=== PATIENT | female | born 1990 | race Caucasian/White ===

== ENCOUNTER 2024-07-04 18:55 | Outpatient (REF) | payer OTHER, SELFPAY ==
[2024-07-10 14:09] LABS: Age Gdln ACOG Testing Note (.); HPV Aptima Negative (Negative); IGP, Aptima HPV, rfx 16/18,45 Note (.)
== END 2024-07-04 18:56 | disposition home or self-care (01) ==
LOC: LAB 18:55
PROVIDERS: Visit Provider Obstetrics & Gynecology
DX: Z01.419 Encounter for gynecological examination (general) (routine) without abnormal findings (principal)
CPT/HCPCS: 87624; 88175

== ENCOUNTER 2025-07-09 19:45 | Outpatient (REF) | payer OTHER, SELFPAY ==
--- OUTSIDE RECORDS SUMMARY | 2025-07-09 19:48 | XMS_ITS | CCD ---
Author Organization [facility] CliniSyma Care Team Providers Care Shuttle Operator Name Role Phone RAEANN, DR BRIZUELA Admitting Unavailable REQUEST, NONE LISTED Primary Care Unavaila ble RAEANN, DR BRIZUELA Attending Unavailable RAEANN, DR BRIZUELA Consulting Unavailable REQUEST, DR TAMAYO LISTED Primary Care Unavaila ble RAEANN, DR BRIZUELA Consulting Unavailable RAEANN, DR BRIZUELA Admitting Unavailable RAEANN, DR BRIZUELA Attending Unavailable ZIEBER, DR TERI Cifuentes Consulting Unavailable RAEANN, DR BRIZUELA Admitting Unavailable RAEANN, DR BRIZUELA Attending Unavailable RAEANN, DR BRIZUELA Consulting Unavailable RAEANN, DR BRIZUELA Primary Care Unavailable RAEANN, DR BRIZUELA Admitting Unavailable REQUEST, DR BELKIS LISTED Primary Care Unavaila ble RAEANN, DR BRIZUELA Attending Unavailable RAEANN, DR BRIZUELA Consulting Unavailable RAEANN, DR BRIZUELA Attending Unavailable RAEANN, DR BRIZUELA Admitting Unavailable REQUEST, DR TAMAYO LISTED Primary Care Unavaila ble RAEANN, DR BRIZUELA Consulting Unavailable RAEANN, DR BRIZUELA Attending Unavailable RAEANN, DR BRIZUELA Admitting Unavailable REQUEST, DR BELKIS LISTED Primary Care Unavaila ble RAEANN, DR BRIZUELA Consulting Unavailable WEST, DR SUKI Kilpatrick Consulting Unavailable REQUEST, DR TAMAYO LISTED Primary Care Unavaila ble RAEANN, DR BRIZUELA Attending Unavailable RAEANN, DR BRIZUELA Admitting Unavailable RAEANN, DR BRIZUELA Consulting Unavailable REQUEST, DR TAMAYO LISTED Primary Care Unavaila ble RAEANN, DR BRIZUELA Consulting Unavailable RAEANN, DR BRIZUELA Admitting Unavailable RAEANN, DR BRIZUELA Attending Unavailable WEST, DR SUKI Kilpatrick Consulting Unavailable REQUEST, DR TAMAYO LISTED Primary Care Unavaila ble RAEANN, DR BRIZUELA Admitting Unavailable RAEANN, DR BRIZUELA Attending Unavailable RAEANN, DR BRIZUELA Consulting Unavailable RAEANN, DR BRIZUELA Consulting Unavailable RAEANN, DR BRIZUELA Admitting Unavailable RAEANN, DR MAY Attending Unavailable JOSH WELLS Admitting Unavailable JOSH WELLS Attending Unavailable JOSH WELLS Consulting Unavailable DR GELACIO CARY Primary Care Unavailable JOSH WELLS Procedure Practitioner Unavailab le Unavailable Primary Care Provider UnavailGELACIO Medrano Attending Unavailable GELACIO CARY Attending Unavailable Medications Current Medications Medication Drug Class(es) Dates Sig (Normalized) Sig (Original) etonogestrel 68 mg drug implant (4 sources) Progestin Start: 04-11-2024 End: 04-11-2027 etonogestrel-eluting 68 mg contraceptive implant 1 each Problems Active Problems Problem Classification Problem Date Documented Date Episodic/Chronic Immunizations and screening for infectious disease (2 sources) Encounter for screening for human papillomavirus (HPV); Translations: [Encounter for screening for infections with a predominantly sexual mode of transmission] Onset: 08-25-2020 Episodic Other complications of ; puerperium affecting management of mother (1 source) Obesity complicating childbirth; Translations: [OBESITY COMPLICATING CHILDBIRTH] Onset: 02-03-2021 Chronic Other nutritional; endocrine; and metabolic disorders (1 source) Obesity, unspecified; Translations: [OBESITY UNSPECIFIED] Onset: 02-03-2021 Chronic Other screening for suspected conditions (not mental disorders or infectious disease) (17 sources) Encounter for screening for malignant neoplasm of cervix; Translations: [Encounter for screening for Streptococcus B] Onset: 09-06-2020 Episodic Unclassified (1 source) CONTACT W/AND (SUSP) EXPOS COVID-19; Translations: [CONTACT W/AND (SUSP) EXPOS COVID-19] Onset: 02-03-2021 Past or Other Problems Problem Classification Problem Date Documented Date Episodic/Chronic Diabetes mellitus without complication (4 sources) Other abnormal glucose; Translations: [OTHER ABNORMAL GLUCOSE] Onset: 10-22-2020 Episodic Hemorrhage during ; abruptio placenta; placenta previa (4 sources) Low lying placenta NOS or without hemorrhage, unspecified trimester; Translations: [LOW LYING PL NOS W/O HEMORR UNS TRI] Onset: 10-16-2020 Episodic OB-related trauma to perineum and vulva (1 source) First degree perineal laceration during delivery; Translations: [FIRST DEG PERINEAL LAC DUR DELIV] Onset: 02-03-2021 Episodic Other complications of (5 sources) Other specified related conditions, third trimester; Translations: [OTH SPEC PREG RELATED COND 3RD TRI] Onset: 11-20-2020 Episodic Other female genital disorders (1 source) Other specified noninflammatory disorders of vagina; Translations: [OTH SPEC NONINFLAMMATORY D/O VAGINA] Onset: 08-25-2020 Episodic Other infections; including parasitic (4 sources) Trichomoniasis, unspecified; Translations: [TRICHOMONIASIS UNSPECIFIED] Onset: 09-18-2020 Episodic Other and delivery including normal (6 sources) Single live ; Translations: [Encounter for supervision of normal first , unspecified trimester] Onset: 08-28-2020 Episodic Polyhydramnios and other problems of amniotic cavity (1 source) Full-term premature rupture of membranes, onset of labor within 24 hours of rupture; Translations: [FT PROM ONSET LABR W/I 24 HR RUPT] Onset: 02-03-2021 Episodic Residual codes; unclassified (1 source) 39 weeks gestation of ; Translations: [39 WEEKS GESTATION OF ] Onset: 02-03-2021 Episodic Residual codes; unclassified (1 source) Type A blood, Rh negative; Translations: [TYPE A BLOOD RH NEGATIVE] Onset: 02-03-2021 Episodic Residual codes; unclassified (1 source) Personal history of other specified conditions; Translations: [PERSONAL HISTORY OTH SPEC CONDITION] Onset: 02-03-2021 Episodic Residual codes; unclassified (1 source) Unspecified blood type, Rh negative; Translations: [UNSPECIFIED BLOOD TYPE RH NEGATIVE] Onset: 11-20-2020 Episodic Residual codes; unclassified (1 source) Other specified postprocedural states; Translations: [OTH SPECIFIED POSTPROCEDURAL STATES] Onset: 09-06-2020 Episodic Screening and history of mental health and substance abuse codes (1 source) Personal history of nicotine dependence; Translations: [PERSONAL HISTORY OF NICOTINE DEPEND] Onset: 02-03-2021 Episodic Substance-related disorders (2 sources) Drug use complicating childbirth; Translations: [Cannabis use, unspecified, uncomplicated] Onset: 02-03-2021 Episodic Results Test Name Value Interpretation Reference Range Facility IGP,APTIMA HPV,AGE GDLNon AGE GDLN ACOG TESTING Note . [facility] Comment on above: TESTS RESULT FLAG UN ITS REF RANGE LAB Clinician Provided Cytology Information Source.............Cervix;Endocervix No. of containers..01 ThinPrep Vial Age Karimeo ACOG Simi... FLAG LEGEND: L-Low Normal,H-High Normal,LL-Alert Low,HH-Alert High <-Panic Low,>-Panic High,A-Abnormal,AA-Critical Abnormal Performed at: 01 =G [address] [id number] Annie Burris MD, HPV APTIMA Negative Negative [facility] Comment on above: This nucleic acid am plification test detects fourteen high- risk HPV types (16,18,31,33,35,39,45,51,52,56,58,59,66,68) without differentiation. Performed at: = - [address] [id number] Customer Service Security Officer: Annie Burris MD, Phone: [phone] Performed at: - [address] [id number] Customer Service Security Officer: Annie Burris MD, Phone: [phone] IGP, APTIMA HPV, RFX 16/18,45 Note . [facility] Comment on above: TESTS RESULT FLAG ITS REF RANGE LAB DIAGNOSIS: 02 NEGATIVE FOR INTRAEPITHELIAL LESION OR MALIGNANCY. Specimen adequacy: 02 Satisfactory for evaluation. Endocervical and/or squamous metaplastic cells (endocervical component) are present. Performed by: 02 Hernan Blakely, Airport Manager ([facility]) . 02 Note: Note 02 The Pap smear is a screening test designed to aid in the detection of premalignant and malignant conditions of the uterine cervix. It is not a diagnostic procedure and should not be used as the sole means of detecting cervical cancer. Both false-positive and false-negative reports do occur. Test Methodology: Note 02 This liquid based ThinPrep(R) pap test was screened with the use of an image guided system. HPV Genotype Reflex Note 02 Criteria not met, HPV Genotype not performed. FLAG LEGEND: L-Low Normal,H-High Normal,LL-Alert Low,HH-Alert High <-Panic Low,>-Panic High,A-Abnormal,AA-Critical Abnormal Performed at: [address] [phone] Annie Burris MD, BRUSH-SPATULA CERVIX ENDOCERVIX [facility] PAP ACOG PANEL 2: 21 to 29on 08-20-2021 . . Normal [facility] Comment on above: Performed By: #### [id number] #### [facility] [address] [place] [address] Dr. Cammy Downing Age Gdln ACOG Testing - Normal [facility] Comment on above: Performed By: #### [id number] #### [facility] [address] [place] [address] Dr. Cammy Downing DIAGNOSIS: Comment Normal [facility] Comment on above: Result Comment: NEGA TIVE FOR INTRAEPITHELIAL LESION OR MALIGNANCY. CELLULAR CHANGES ASSOCIATED WITH INFLAMMATION ARE PRESENT. Performed By: #### 4 [id number] #### [facility] [address] [place] [address] Dr. Cammy Downing Methodology: Comment Normal [facility] Comment on above: Result Comment: This liquid based ThinPrep(R) pap test was screened with the use of an image guided system. Performed By: #### [id number] #### [facility] [address] [place] [address] Dr. Cammy Downing Note: Comment Normal [facility] Comment on above: Result Comment: The Pap smear is a screening test designed to aid in the detection of premalignant and malignant conditions of the uterine cervix. It is not a diagnostic procedure and should not be used as the sole means of detecting cervical cancer. Both false-positive and false-negative reports do occur. . Performed By: #### 4 [id number] #### [facility] [address] [place] [address] Dr. Cammy Downing Performed by: Comment Normal [facility] Comment on above: Result Comment: Monica Cantu Airport Manager ([employer]) Performed By: #### 4 [id number] #### [facility] [address] [place] [address] Dr. Cammy Downing Reflex Criteria: Comment Normal [facility] Comment on above: Result Comment: The HPV DNA reflex criteria were not met with this specimen result therefore, no HPV testing was performed. . Performed By: #### 4 [id number] #### [facility] [address] [place] [address] Dr. Cammy Downing Specimen adequacy: Comment Normal [facility] Comment on above: Result Comment: Sati sfactory for evaluation. Endocervical and/or squamous metaplastic cells (endocervical component) are present. Performed By: #### 4 [id number] #### [facility] [address] [place] [address] Dr. Cammy Downing CANNABINOID (THC) CONFIRMATI ON, URINEon 02-02-2021 Cannabinoid Positive Abnormal [facility] Comment on above: Performed By: #### G LU1HR #### [facility] [address] [place], [place] [id number] Izzy Marla Carboxy THC GC/MS Conf 46 ng/mL Normal Cutoff=10 [facility] Comment on above: Performed By: #### G LU1HR #### [facility] [address] [place], [place] [id number] Izzy Marla CBC AUTO DIFFon 01-26-2021 BASO # 0.0 103/ul Normal 0.0-0.1 [facility] Comment on above: Performed By: #### C BC #### [facility] [address] [place] [address] Izzy Marla Basophils/100 WBC (Bld) 0.2 % Normal 0.2-2.0 [facility] Comment on above: Performed By: #### C BC #### [facility] [address] [place], [place] [address] Izzy Marla EO # 0.1 103/ul Normal 0.0-0.7 [facility] Comment on above: Performed By: #### C BC #### [facility] [address] [place], [place] [address] Izzy Marla Eosinophils/100 WBC (Bld) 1.1 % Normal 0.9-7.0 [facility] Comment on above: Performed By: #### C BC #### [facility] [address] [place], [place] [address] Izzy Marla Erythrocyte distribution width (RBC) [Ratio] 12.3 % Normal 11.0-15.0 [facility] Comment on above: Performed By: #### C BC #### [facility] [address] [place], [place] [address] Izzy Marla Hematocrit (Bld) [Volume fraction] 35.0 % Critically low 36.0-48.0 [facility] Comment on above: Performed By: #### C BC #### [facility] [address] [place] [address] Izzy Marla Hemoglobin (Bld) [Mass/Vol] 11.6 g/dL Critically low 12.0-16.0 [facility] Comment on above: Performed By: #### C BC #### [facility] [address] [place], [place] [address] Izzy Marla IG # 0.04 10e3/ul Critically high 0.00-0.03 [facility] Comment on above: Performed By: #### C BC #### [facility] [address] [place], [place] [address] Izzy Marla IG % 0.4 % Normal 0.0-0.5 [facility] Comment on above: Performed By: #### C BC #### [facility] [address] [place] [address] Izzy Marla LYMPH # 2.6 103/ul Normal 1.2-3.8 [facility] Comment on above: Performed By: #### C BC #### [facility] [address] [place] [address] Izzy Marla Lymphocytes/100 WBC (Bld) 23.8 % Normal 20.5-60.0 [facility] Comment on above: Performed By: #### C BC #### [facility] [address] [place], [place] [address] Izzyjuana Gutiérrez MANUAL DIFF REQ NO Normal [facility] Comment on above: Performed By: #### C BC #### [facility] [address] [place], [place] [address] Izzy Marla MCH (RBC) [Entitic mass] 30.9 pg Normal 26.7-34.0 [facility] Comment on above: Performed By: #### C BC #### [facility] [address] [place], [place] [address] Izzy Marla MCHC (RBC) [Mass/Vol] 33.1 g/dL Normal 29.9-35.2 [facility] Comment on above: Performed By: #### C BC #### [facility] [address] [place], [place] [address] Izzy Marla MCV (RBC) [Entitic vol] 93.1 fL Normal 81.0-99.0 [facility] Comment on above: Performed By: #### C BC #### [facility] [address] [place], [place] [address] Izzy Gutiérrez MONO # 1.1 103/ul Critically high 0.3-0.8 [facility] Comment on above: Performed By: #### C BC #### [facility] [address] [place], [place] [address] Izzy Gutiérrez Monocytes/100 WBC (Bld) 9.9 % Normal 1.7-12.0 [facility] Comment on above: Performed By: #### C BC #### [facility] [address] [place] [address] Izzy Gutiérrez NEUT # 7.0 103/ul Critically high 1.4-6.5 [facility] Comment on above: Performed By: #### C BC #### [facility] [address] [place] [address] Izzy Gutiérrez Neutrophils/100 WBC (Bld) 64.6 % Normal 43.0-75.0 [facility] Comment on above: Performed By: #### C BC #### [facility] [address] [place], [place] [address] Izzy Gutiérrez Platelet mean volume (Bld) [Entitic vol] 11.1 fL Normal 9.5-13.5 [facility] Comment on above: Performed By: #### C BC #### [facility] [address] [place] [address] Izzy Gutiérrez PLT 240 103/ul Normal 150-450 [facility] Comment on above: Performed By: #### C BC #### [facility] [address] [place], [place] [address] Izzy Gutiérrez RBC 3.76 106/ul Critically low 4.20-5.40 [facility] Comment on above: Performed By: #### C BC #### [facility] [address] [place] [address] Izzy Marla WBC 10.8 103/ul Normal 4.0-11.0 [facility] Comment on above: Performed By: #### C BC #### [facility] [address] [place] [address] Izzyjuana Gutiérrez DRUG SCREEN RAPID (URINE)on 01-26-2021 AMP Negative Normal NEGATIVE [facility] Comment on above: Performed By: #### C VDRPD #### [facility] [address] [place] [address] Izzy Marla BAR Negative Normal NEGATIVE [facility] Comment on above: Performed By: #### C VDRPD #### [facility] [address] [place] [address] Izzy Marla BUP Negative Normal NEGATIVE [facility] Comment on above: Performed By: #### C VDRPD #### [facility] [address] [place] [address] Izzy Marla BZO Negative Normal NEGATIVE [facility] Comment on above: Performed By: #### C VDRPD #### [facility] [address] [place] [address] Izzy Marla MANI Negative Normal NEGATIVE [facility] Comment on above: Performed By: #### C VDRPD #### [facility] [address] [place] [address] [facility] SEE BELOW Normal [facility] Comment on above: Result Comment: AMP (Amphetamine): 500ng/mL, BAR (Barbituates): 200 ng/mL, BZO (Benzodiazepines): 150 ng/mL, BUP (Buprenorphine): 10 ng/mL, MANI (Cocaine): 150 ng/mL, mAMP (Methamphetamine): 500 ng/mL, MTD (Methadone): 200 ng/mL, OPI (Opiates): 100 ng/mL, OXY (Oxycodone): 100 ng/mL, PCP (Phencyclidine): 25 ng/mL, PPX (Propoxyphene): 300 ng/mL, THC (Cannabinoids): 50 ng/mL, TCA (Trycyclic Antidepressants): 300 ng/mL Performed By: #### C VDRPD #### [facility] [address] [place] [address] DRUG CUT HEADER DRUG CLASS TEST SYSTEM CUT-OFF CONCENTRATIONS ARE FOLLOWS: Normal [facility] Comment on above: Performed By: #### C VDRPD #### [facility] [address] [address] Izzy Marla mAMP Negative Normal NEGATIVE [facility] Comment on above: Performed By: #### C VDRPD #### [facility] [address] [address] Izzy Marla MTD Negative Normal NEGATIVE [facility] Comment on above: Performed By: #### C VDRPD #### [facility] [address] [place] [address] Izzy Marla OPI Negative Normal NEGATIVE [facility] Comment on above: Performed By: #### C VDRPD #### [facility] [address] [place] [address] Izzy Marla OXY Negative Normal NEGATIVE [facility] Comment on above: Performed By: #### C VDRPD #### [facility] [address] [place] [address] Izzy Marla PCP Negative Normal NEGATIVE [facility] Comment on above: Performed By: #### C VDRPD #### [facility] [address] [place] [address] Izzy Marla PPX Negative Normal NEGATIVE [facility] Comment on above: Performed By: #### C VDRPD #### [facility] [address] [place] [address] Izzy Marla TCA Negative Normal NEGATIVE [facility] Comment on above: Performed By: #### C VDRPD #### [facility] [address] [place] [address] Izzy Marla THC Positive Abnormal NEGATIVE [facility] Comment on above: Performed By: #### C VDRPD #### [facility] [address] [place] [address] Izzy Marla SCREENon 01-26-2021 SCREEN Negative Normal [facility] Comment on above: Performed By: #### F ETSCRN #### [facility] [address] [place] [address] Izzy Nunnen RHOGAMon 01-26-2021 RHOGAM Status Information Issued Quantity 1 Product ID Rh Immune Globulin Lot Number [id number] Issue Date/Time [id number] Normal [facility] Comment on above: Performed By: #### R HOG #### [facility] [address] [place] [address] Izzy Gutiérrez Rapid Covid-19 PCR (CVDRPD)o n 01-26-2021 SARS-CoV-2 (COVID-19) RNA ARSENIO+probe Ql (Unsp spec) Not detected Normal NOT DETECTED [facility] Comment on above: Result Comment: This test is not yet approved or cleared by the [place] Food and Drug Administration (FDA). This test was developed by [employer], [place], [place]. The performance characteristics of this test were validated by [facility]. The results are not intended to be used as the sole means for clinical diagnosis or patient management decisions. [facility] is authorized under Clinical Laboratory Improvement Amendments (CLIA) to perform high- complexity testing. When diagnostic testing is negative, the possibility of a false negative should be considered in the context of a patient's recent exposures and the presence of clinical signs and symptoms consistent with SARS-CoV-2. Performed By: #### C VDRPD #### [facility] [address] [place] [address] Izzy Gutiérrez TYPE AND SCREENon 01-26-2021 TYPE AND SCREEN Negative Normal [facility] Comment on above: Performed By: #### T NS #### [facility] [address] [place] [address] Izzy Gutiérrez GROUP B STREP CULTUREon S. agalactiae Ag Ql (Unsp spec) Culture Observations: NEGATIVE FOR GROUP B STREPTOCOCCUS Normal [facility] Comment on above: Performed By: #### G LU1HR #### [facility] [address] [place] [address] Izzy Gutiérrez RHOGAMon 11-14-2020 RHOGAM Status Information Issued Quantity 1 Product ID Rh Immune Globulin Lot Number [id number] Issue Date/Time [id number] Normal [facility] Comment on above: Performed By: #### G LU1HR #### [facility] [address] [place] [address] Izzy Marla TYPE AND SCREENon 11-13-2020 TYPE AND SCREEN Negative Normal [facility] Comment on above: Performed By: #### T NS #### [facility] [address] [place] [address] Izzy Marla GTT 3 HR PREGon 10-22-2020 Glucose [Mass/Vol] 89 mg/dL Normal 74-106 [facility] Comment on above: Performed By: #### G LU1HR #### [facility] [address] [place] [address] Izzy Marla Glucose [Mass/Vol] 166 mg/dL Normal [facility] Comment on above: Performed By: #### G LU1HR #### [facility] [address] [place], [place] [address] Izzy Marla Glucose [Mass/Vol] 91 mg/dL Normal [facility] Comment on above: Performed By: #### G LU1HR #### [facility] [address] [place] [address] Izzy Marla Glucose [Mass/Vol] 101 mg/dL Normal [facility] Comment on above: Performed By: #### G LU1HR #### [facility] [address] [place], [place] [address] Izzy Marla GLUCOSE - 1HRon 10-17-2020 Glucose [Mass/Vol] 153 mg/dL Critically high 74-106 [facility] Comment on above: Performed By: #### G LU1HR #### [facility] [address] [place], [place] [address] Izzy Marla HEMOGRAM AND PLATELon 2020 Hematocrit (Bld) [Volume fraction] 34.0 % Critically low 36.0-48.0 [facility] Comment on above: Performed By: #### G LU1HR #### [facility] [facility] [address] [place], [place] [id number] Izzy Marla Hemoglobin (Bld) [Mass/Vol] 11.1 g/dL Critically low 12.0-16.0 [facility] Comment on above: Performed By: #### G LU1HR #### [facility] [address], [place] [address] Izzy Gutiérrez MCH (RBC) [Entitic mass] 31.8 pg Normal 26.7-34.0 [facility] Comment on above: Performed By: #### G LU1HR #### [facility] [address] [place] [address] Izzy Gutiérrez MCHC (RBC) [Mass/Vol] 32.6 g/dL Normal 29.9-35.2 [facility] Comment on above: Performed By: #### G LU1HR #### [facility] [address] [place] [address] Izzy Gutiérrez MCV (RBC) [Entitic vol] 97.4 fL Normal 81.0-99.0 [facility] Comment on above: Performed By: #### G LU1HR #### [facility] [address] [place] [address] Izzy Gutiérrez PLT 258 103/ul Normal 150-450 [facility] Comment on above: Performed By: #### G LU1HR #### [facility] [address] [place] [address] Izzy Gutiérrez RBC 3.49 106/ul Critically low 4.20-5.40 [facility] Comment on above: Performed By: #### G LU1HR #### [facility] [address] [place] [address] Izzy Gutiérrez WBC 9.3 103/ul Normal 4.0-11.0 [facility] Comment on above: Performed By: #### G LU1HR #### [facility] [address] [place] [address] Izzy Gutiérrez US PREG PLACENTAon 1 US PREG PLACENTA EXAMINATION: US PREG PLACENTA HISTORY: Low lying placenta COMPARISON: No relevant comparison available. FINDINGS: position: Cephalic presentation, longitudinal lie Placenta: Anterior. No intraplacental or retroplacental echogenic abnormality. Grade 0. The placental edge is 4 cm from the internal cervical os Heart rate: 151 BPM Cervix: 3.9 cm, closed IMPRESSION: Placental edge 4 cm from the internal cervical os Electronically authenticated by: SUKI GOMEZ Date: 2020-10-16 10:30 Normal [facility] VAGINITIS/VAGINOSIS DNA PROB Dlaton 09-20-2020 Chey species Negative Normal Negative [facility] Comment on above: Performed By: #### C VDRPD #### [facility] [address] [address] Izzy Gutiérrez Gardnerella vaginalis Negative Normal Negative [facility] Comment on above: Performed By: #### C VDRPD #### [facility] [address] [address] Izzy Gutiérrez Trichomonas vaginalis Negative Normal Negative [facility] Comment on above: Performed By: #### C VDRPD #### [facility] [address] [address] Izzy Gutiérrez US PREG ANATOMY SINGLEon US PREG ANATOMY SINGLE EXAMINATION: US PREG ANATOMY SINGLE HISTORY: screening COMPARISON: No relevant comparison available. TECHNIQUE: Transabdominal sonographic examination was performed for obstetrical and evaluation. FINDINGS: Number: 1 Heart Rate: 144.0 bpm H.B. /min Amniotic Fluid Volume: Subjectively normal Breech presentation Placental Location: ANTERIOR, grade 0, the placental edge is 2.0 cm from the internal cervical os Cervix Length: 4 cm Normal structures: Cerebellum. Choroid plexus. Cisterna magna. Lateral cerebral ventricles. Orbits. Midline falx. Hard palate. 4-chamber heart. RVOT. LVOT. Stomach. Kidneys. Bladder. Umbilical cord insertion into abdomen. 3 vessel cord. Cervical spine. Thoracic spine. Lumbar spine. Sacral spine. Right upper extremity. Left upper extremity. Right lower extremity. Left lower extremity. Suboptimally seen: None. Abnormalities/Other: None BIOMETRY: BPD: 4.3 cm 19 weeks 1 days HC: 15.9 cm 18 weeks 5 days AC: 15.1 cm 20 weeks 2 days FL: 3.2 cm 19 weeks 6 days EFW:321.3 grams; 26% FL/AC: 20.9 FL/BPD: 72.8 HC/AC: 1.0 GESTATIONAL AGE: Age by EDC: 20 weeks 2 days JOSHUA by EDC: 02/01/2021 Age by current US: 19 weeks 4 days JOSHUA by current US: 02/06/2021 IMPRESSION: Normal anatomy scan *Reference: [facility] Practice Guideline for the performance of Obstetric Ultrasound Examinations, July 04, 2007. Electronically authenticated by: SUKI GOMEZ Date: 2020-09-16 11:11 Normal [facility] AFP MATERNAL FOR SPINA BIFID Aon 08-31-2020 AFP MoM 1.09 Normal [facility] Comment on above: Performed By: #### A FPMAT #### [facility] [address] [address] Izzy Gutiérrez AFP Value 37.5 ng/mL Normal [facility] Comment on above: Performed By: #### A FPMAT #### [facility] [address] [address] Izzy Gutiérrez AFP, Serum for Spina Bifida Report Normal [facility] Comment on above: Performed By: #### A FPMAT #### [facility] [address] [address] Izzy Gutiérrez Comment Comment Normal [facility] Comment on above: Result Comment: Ysabel Berry, Ph.D., [facility] Director . References: Available Upon Request. . Multiples Of Median Cutoffs For AFP Elevations Marie 2.5 Black 2.8 IDD 2.0 Twins 4.5 Abbreviation Definitions IDD - Insulin Dep Diabetes OSBR - Open Spina Bifida Risk . For further inquiries contact [email or web address] [facility] at [phone]. Performed By: #### A FPMAT #### [facility] [address] [place], [place] [id number] Izzy Gutiérrez Gest Age Collection Date 17.1 weeks [facility] Comment on above: Performed By: #### A FPMAT #### [facility] [address] [id number] Izzy Gutiérrez Gestat, Age Based on Ultrasound [facility] Comment on above: Result Comment: 8.0 on 06/25/2020 Recalculations are not recommended when gestational dating by LMP and ultrasound are within 10 days. Performed By: #### A FPMAT #### [facility] [address] [address] Izzy Gutiérrez Insulin Dep Diabetes No Normal [facility] Comment on above: Performed By: #### A FPMAT #### [facility] [address] [place] [address] Izzy Marla Interpretation Comment Normal [facility] Comment on above: Result Comment: Inte rpretation: Screen Negative . This result is screen negative for OSB. The AFP MoM calculated is based on the gestational age provided. MS-AFP can identify up to 80% of open neural tube defects. Closed neural tube defects and some open defects may not be detected by this test. This test does not screen for Down Syndrome or Trisomy 18. If screening for Down Syndrome or Trisomy 18 is desired, contact [employer] to discuss available options. The [employer] recommends amniocentesis be offered to women age 35 and older. Performed By: #### A FPMAT #### [facility] [address] [place] [address] Izzyjuana Gutiérrez [age] Normal [facility] Comment on above: Performed By: #### A FPMAT #### [facility] [address] [place] [address] Izzyjuana Gutiérrez Multiple Gestation No Normal [facility] Comment on above: Performed By: #### A FPMAT #### [facility] [address] [place] [address] Izzyjuana Gutiérrez OSBR Risk 1 [place] [address] Normal [facility] Comment on above: Performed By: #### A FPMAT #### [facility] [address] [place] [address] Izzyjuana Gutiérrez PDF . Normal [facility] Comment on above: Performed By: #### A FPMAT #### [facility] [address] [place] [address] Izzy Marla Race Normal [facility] Comment on above: Performed By: #### A FPMAT #### [facility] [address] [place] [address] Izzy Marla Test Results: Negative Normal [facility] Comment on above: Performed By: #### A FPMAT #### [facility] [address] [place] [address] Izzy Marla US PREG CERVICAL LENGTHon US PREG CERVICAL LENGTH EXAMINATION: US PREG CERVICAL LENGTH HISTORY: Postprocedural state finding COMPARISON: 07/30/2020 ultrasound cervical length TECHNIQUE: Transabdominal and transvaginal sonographic examination for cervical length. FINDINGS: CERVIX LENGTH: 3.8 cm; closed HEART RATE: 148 bpm Age by EDC: 17 weeks, 4 days JOSHUA by EDC: 02/01/2021 IMPRESSION: Closed cervix, 3.8 cm in length; unchanged. Electronically authenticated by: TERI ALBERT Date: 2020-08-28 09:49 Normal [facility] PAP ACOG PANEL 2: 21 to 29on 08-27-2020 . . Normal [facility] Comment on above: Performed By: #### [id number] #### [facility] [address] [place] [address] Izzy Gutiérrez Age Gdln ACOG Testing 21-29 [facility] Comment on above: Performed By: #### 4 [id number] #### [facility] [address] [address] Izzy Gutiérrez DIAGNOSIS: Comment [facility] Comment on above: Result Comment: NEGA TIVE FOR INTRAEPITHELIAL LESION OR MALIGNANCY. Performed By: #### 4 [id number] #### [facility] [address] [place] [address] Izzy Gutiérrez Methodology: Comment [facility] Comment on above: Result Comment: This liquid based SurePath(R) pap test was screened with the assistance of an image guided system. Performed By: #### 4 [id number] #### [facility] [address] [place] [address] Izzy Gutiérrez Note: Comment [facility] Comment on above: Result Comment: The Pap smear is a screening test designed to aid in the detection of premalignant and malignant conditions of the uterine cervix. It is not a diagnostic procedure and should not be used as the sole means of detecting cervical cancer. Both false-positive and false-negative reports do occur. . Performed By: #### 4 [id number] #### [facility] [address] [place] [address] Izzy Gutiérrez Performed by: Comment Normal [facility] Comment on above: Result Comment: Angelito Li Airport Manager (ASCP) Performed By: #### 4 [id number] #### [facility] [address] [place] [address] Izzy Marla Reflex Criteria: Comment Normal [facility] Comment on above: Result Comment: The HPV DNA reflex criteria were not met with this specimen result therefore, no HPV testing was performed. . Performed By: #### 4 [id number] #### [facility] [address] [place] [address] Izzy Marla Specimen adequacy: Comment Normal [facility] Comment on above: Result Comment: Sati sfactory for evaluation. No endocervical component is identified. An endocervical component is not commonly seen in the patient. Performed By: #### 4 [id number] #### [facility] [address] [place] [address] Izzy Marla CHLAMYDIA/GONOCOCCUS ARSENIO (SW AB/URINE/PAPon 08-24-2020 Chlamydia trachomatis, ARSENIO Negative Normal Negative [facility] Comment on above: Performed By: #### G LU1HR #### [facility] [address] [place] [address] Izzy Marla Neisseria gonorrhoeae, ARSENIO Negative Normal Negative [facility] Comment on above: Performed By: #### G LU1HR #### [facility] [address] [place] [address] Izzy Marla VAGINITIS/VAGINOSIS DNA PROB [place] 08-23-2020 Chey species Negative Normal Negative [facility] Comment on above: Performed By: #### G LU1HR #### [facility] [address] [place] [address] Izzy Marla Gardnerella vaginalis Positive Abnormal Negative [facility] Comment on above: Performed By: #### G LU1HR #### [facility] [address] [place] [address] Izzy Marla Trichomonas vaginalis Positive Abnormal Negative [facility] Comment on above: Performed By: #### G LU1HR #### [facility] [address] [place] [address] Izzy Gutiérrez Vital Signs Date Time Vital Sign Value Performing Clinician Facility 07-04-2024 13:53-0400 Body height 160 cm Gelacio Raeann DO Work Phone: [facility] 07-04-2024 13:53-0400 Body mass index (BMI) [Ratio] 36.49 kg/m2 Gelacio Raeann DO Work Phone: [facility] 07-04-2024 13:53-0400 Body weight 93.44 kg Gelacio Raeann DO Work Phone: [facility] 07-04-2024 13:53-0400 Diastolic blood pressure 68 mm[Hg] Gelacio Raeann DO Work Phone: [facility] 07-04-2024 13:53-0400 Systolic blood pressure 110 mm[Hg] Gelacio Raeann DO Work Phone: [facility] 08-31-2020 02:06-0500 Body weight 81.[address] GELACIO CARY [facility] Comment on above: Performed By: #### AFPMAT #### [facility] [address], [place] [address] Izzy Gutiérrez Encounters Encounter Date Encounter Type Care Provider Facility Start: 07-04-2024 End: 07-04-2024 Bamboo flowsheet Gelacio Raeann DO Work Phone: [facility] Start: 07-04-2024 End: 07-10-2024 Bamboo flowsheet Gelacio Raeann DO Work Phone: [facility] Start: 07-04-2024 End: 07-10-2024 Clinisync Result Encounter Gelacio Raeann DO Work Phone: [facility] External Department Unsolicited Start: 07-04-2024 End: 07-04-2024 ambulatory GELACIO RAEANN Not Available Start: 07-04-2024 End: 07-04-2024 Patient encounter procedure Gelacio Raeann DO Work Phone: [facility] Start: 07-04-2024 End: 07-04-2024 Periodic preventive med est patient 18-39 yrs Gelacio Cary DO Work Phone: [facility] Comment on above: Well woman exam with routine gynecological exam Start: 04-11-2024 End: 04-11-2024 ambulatory GELACIO CARY Not Available Start: 08-14-2021 End: 08-14-[address] GELACIO CARY Facility:[facility] Start: 01-26-2021 End: 01-26-2021 Evaluation and management of inpatient JOSH WELLS Facility:[facility] Start: 01-09-2021 End: 01-09-[address] GELACIO CARY Facility:[facility] Start: 11-13-2020 End: 11-14-[address] GELACIO CARY Facility:[facility] Start: 10-22-2020 End: 10-23-[address] GELACIO CARY Facility:[facility] Start: 10-17-2020 End: 10-18-[address] GELACIO CARY Facility:[facility] Start: 10-16-2020 End: 10-17-[address] SUKI GOMEZ Facility:[facility] Start: 09-18-2020 End: 09-18-[address] NONE LISTED REQUEST Facility:[facility] Start: 09-16-2020 End: 09-17-[address] SUKI GOMEZ Facility:[facility] Start: 08-28-2020 End: 08-29-2020 ambulatory NONE LISTED REQUEST Facility:[facility] Start: 08-21-2020 End: 08-21-[address] GELACIO CARY Facility:[facility] Procedures Date Procedure Procedure Detail Performing Clinician Start: 07-04-2024 IGP,APTIMA HPV,AGE GDLN Gelacio Cary DO Work Phone: Start: 01-26-2021 Extraction of Produc ts of Conception, Vacuum, Via Natural or Artificial Opening DR GELACIO CRAY Start: 01-26-2021 Repair Perineum Skin , External Approach DR GELACIO CARY Plan of Treatment Date Care Activity Detail Author Start: 07-09-2025 End: 07-09-2025 Patient encounter procedure 07/09/2025 3:00 PM EDT Office Visit [facility] [address] [place] [id number] Raeann, Gelacio, [address] [place] [address] [facility] Cytology Cervical or vaginal smear or scraping study Pap Smear Pathology and Cytology Routine Well woman exam with routine gynecological exam Ordered: 07/04/2024 [facility] Work Phone: Comment on above: Ordered: 07/04/2024 Human papilloma viru s DNA [Presence] in Unspecified specimen by Probe with amplification HPV DNA probe, amplified Microbiology Routine Well woman exam with routine gynecological exam Ordered: 07/04/2024 [facility] Comment on above: Ordered: 07/04/2024 Payers Date Payer Category Payer Medicaid [facility] [place] [id number] 2023-Present [address] [place] [address] [id number] 2023 Medicaid [id number] 1992 Unknown [id number] 1992 Unknown [id number] [id number] 1992 Unknown [id number] [id number] 1992 Unknown [id number] [id number] 1992 Unknown [id number] [id number] 1992 Unknown [id number] [id number] 1992 Unknown [id number] [id number] 1992 Unknown [id number] [id number] 1992 Unknown [id number] [id number] 1992 Unknown [id number] [id number] 1992 Unknown [id number] [id number] 1992 Unknown [id number] [id number] 1992 Unknown [id number] [id number] 1959 Unknown [id number] 1959 Unknown [id number] Social History Date Type Detail Facility Tobacco smoking stat [facility] Tobacco smoking consumption unknown [facility] Start: 1992 Sex assigned at Not on file [facility] Start: 07-04-2024 Gender identity Not on file [facility] Start: 07-04-2024 Tobacco smoking stat [facility] Never smoked tobacco [facility] Start: 07-04-2024 Tobacco use and exposure Smokeless t obacco non-user [facility] Start: 07-04-2024 Alcoholic beverage intake Life time non-drinker (finding) [facility] Start: 07-04-2024 History of Social function [facility] History of Present illness Narrative 07-04-2024 DEYANIRA Barrios - 07/04/2024 1:30 PM EDT Note Date & Type Note Facility 07-04-2024 History of Presen t illness Narrative Reason for Appointment: Patient ID: Megan Pagan is a 33 y.o. female who presents for Well Women Visit Patient presents today for Annual Exam. MEDICATIONS No current outpatient medications ALLERGIES No Known Allergies PROBLEMS Active Ambulatory Problems Diagnosis Date Noted No Active Ambulatory Problems Resolved Ambulatory Problems Diagnosis Date Noted No Resolved Ambulatory Problems No Additional Past Medical History HISTORY PAST MEDICAL HISTORY SOCIAL HISTORY History reviewed. No pertinent past medical history. Social History Tobacco Use Smoking status: Never Smokeless tobacco: Never Substance Use Topics Alcohol use: Never Drug use: Never FAMILY HISTORY No family history on file. SURGICAL HISTORY Past Surgical History: Procedure Laterality Date CERVICAL BIOPSY W/ LOOP ELECTRODE EXCISION REVIEW OF SYSTEMS Review of Systems: Review of Systems Constitutional: Negative. HENT: Negative. Eyes: Negative. Respiratory: Negative. Cardiovascular: Negative. Gastrointestinal: Negative. Genitourinary: Negative. Musculoskeletal: Negative. Skin: Negative. Neurological: Negative. All other systems reviewed and are negative. Hematological: Negative. Endocrine: Negative. Allergic/Immunologic: Negative. OBJECTIVE Objective: Physical Exam Constitutional: Appearance: Normal appearance. Genitourinary: Right Adnexa: not tender and no mass present. Left Adnexa: not tender and no mass present. No cervical discharge. Breasts: Breasts are soft. Right: Normal. Left: Normal. HENT: Head: Normocephalic. Nose: Nose normal. Mouth/Throat: Mouth: Mucous membranes are moist. Cardiovascular: Rate and Rhythm: Normal rate. Pulmonary: Effort: Pulmonary effort is normal. Abdominal: General: Bowel sounds are normal. Palpations: Abdomen is soft. Musculoskeletal: General: Normal range of motion. Cervical back: Normal range of motion. Neurological: General: No focal deficit present. Mental Status: She is alert. Skin: General: Skin is warm and dry. Psychiatric: Mood and Affect: Mood normal. Vitals and nursing note reviewed. Exam conducted with a director of residential services present. Vitals: Estimated body mass index is 36.49 kg/m as calculated from the following: Height as of this encounter: 5' 3 . Weight as of this encounter: 206 lb. BP: 110/68 Patient's last menstrual period was 06/30/2024. ASSESSMENT & PLAN ICD-10-CM 1. Well woman exam with routine gynecological exam Z01.419 Pap Smear HPV DNA probe, amplified Annual Exam: Patient presents today for an annual exam. Patient states she is doing well and has no complaints. Pap was obtained without difficulty. Orders Placed This Encounter Procedures HPV DNA probe, amplified Follow Up: Patient is to return in one year for annual unless needed otherwise. Documented by DEYANIRA Barrios on behalf of: Gelacio Cary DO documented in this encounter [facility] Evaluation note Note Date & Type Note Facility Evaluation note Diagnosis Well woman exam with routine gynecological exam Routine gynecological examination documented in this encounter [facility] Summary Purpose Family History No Family History Records FoundNo Family History Records Found Advance Directives No Advanced Directives Records FoundNo Advanced Directives Records Found Additional Source Comments INFORMATION SOURCE (unrecogn ized section and content) DATE CREATED AUTHOR 08/20/2021 [facility] DATE CREATED AUTHOR AUTHOR'S TSERING MONGE 07/06/2024 [facility] EPIC Reason for Visit (unrecogniz ed section and content) Reason Comments Well Women Visit FOR RECORDS PERTAINING TO PATIENTS WHO ARE OR HAVE BEEN ENROLLED IN A CHEMICAL DEPENDENCY/SUBSTANCEABUSE PROGRAM, SOME INFORMATION MAY BE OMITTED. This clinical summary was aggregated from multiple sources. Caution should be exercised in using it in the provision of clinical care. This summary normalizes information from multiple sources, and as a consequence, information in this document may materially change the coding, format and clinical context of patient data. In addition, data may be omitted in some cases. CLINICAL DECISIONS SHOULD BE BASED ON THE PRIMARY CLINICAL RECORDS. [facility] [employer] [facility]. provides no warranty or guarantee of the accuracy or completeness of information in this document.
[2025-07-13 15:09] LABS: Age Gdln ACOG Testing Note (.); IGP, Aptima HPV, rfx 16/18,45 Note (.)
== END 2025-07-09 19:46 | disposition home or self-care (01) ==
LOC: LAB 19:45
PROVIDERS: Visit Provider Nurse Practitioner Family
DX: Z01.419 Encounter for gynecological examination (general) (routine) without abnormal findings (principal)
CPT/HCPCS: 87624; 88175